=== PATIENT | male | born 1935 | race Caucasian/White ===

== ENCOUNTER 2016-10-30 06:41 | Day surgery (SDC) | payer MEDICARE ==
[~2016-10-30 06:41] MED LIST: ASPIR 8181 M1 PO; BENADRYL25 M3 PO; CALCIUM PO; LIPITOR10 M1 PO; NORVASC5 M2 PO; PREDNISONE5 M1 PO; TOPROL XL50 M1 PO; ZYTIGA250 M1 PO
[2016-10-30 07:44] LABS: BASO % 0.7 % (0-2); EOS % 2.4 % (0-7); EOSINOPHIL ABSOLUTE COUNT 0.1 tho/cmm (0.0-0.7); HGB-HEMOGLOBIN 13.3 gm/dl (13.5-17.0); LYMPH % 14.8 % (20-45); LYMPH ABSOLUTE COUNT 0.7 tho/cmm (0.8-4.5); MCH (MEAN CORPUSCULAR HGB) 34.2 pg (28.0-32.0); MCHC MEAN CORPUSCULAR HGB CONC 33.3 % (32.0-36.0); MCV (MEAN CELL VOLUME) 102.8 fl (82.0-96.0); NEUTROPHIL ABSOLUTE COUNT 2.7 tho/cmm (1.6-8.0); NEUTROPHIL-AUTOMATED 2.7 tho/cmm (1.6-8.0); NEUTROPHILS % 59.1 % (40-80); PLATELET COUNT 189 tho/cmm (150-450); RED BLOOD COUNT 3.89 mil/cmm (4.40-5.70); RED CELL DISTRIBUTION WIDTH 12.4 % (12.4-16.4); WHITE BLOOD COUNT 4.5 tho/cmm (4.0-10.0)
[2016-10-30 07:50] LABS: PROTHROMBIN TIME 12.1 SECONDS (9.0-13.6)
== END 2016-10-30 11:05 ==
LOC: US 06:41
PROVIDERS: Radiology Diagnostic Radiology
PROC: 0FB03ZX Excision of Liver, Percutaneous Approach, Diagnostic (ICD-10-PCS; principal; 2016-10-30)
DX: C78.7 Secondary malignant neoplasm of liver and intrahepatic bile duct (principal); Z79.52 Long term (current) use of systemic steroids; Z79.82 Long term (current) use of aspirin; Z79.899 Other long term (current) drug therapy; Z85.46 Personal history of malignant neoplasm of prostate; Z90.49 Acquired absence of other specified parts of digestive tract; Z90.79 Acquired absence of other genital organ(s); Z98.890 Other specified postprocedural states
CPT/HCPCS: J2250; J3010; J7030